=== PATIENT | male | born 1995 | race Caucasian/White ===

== ENCOUNTER 2017-12-09 00:08 | Emergency (ER) | payer SELFPAY | END 2017-12-09 04:32 | disposition left against medical advice (07) | LOC: ER 04:18 | DX: Z53.21 Procedure and treatment not carried out due to patient leaving prior to being seen by health care provider (principal) ==

== ENCOUNTER 2019-02-17 21:30 | Emergency (ER) | payer SELFPAY ==
[~2019-02-17] VITALS: Ht 175.3 cm; Wt 120.0 kg
[2019-02-17] MEDS ORDERED: KETOROLAC 60MG/2ML VIAL IM ONE (22:00)
[2019-02-17] MEDS ORDERED: ONDANSETRON 4MG ODT PO ONE (22:00)
[2019-02-18 00:04] VITALS: BP 128/90
== END 2019-02-18 00:06 | disposition home or self-care (01) ==
LOC: ER 21:30
DX: R10.9 Unspecified abdominal pain (principal)
CPT/HCPCS: 74021; 96372; 99283; J1885; Q0162; Z7610

== ENCOUNTER 2019-11-26 17:35 | Emergency (ER) | payer SELFPAY ==
[~2019-11-26] VITALS: Ht 172.7 cm; Wt 91.0 kg
[2019-11-26] MEDS ORDERED: IBUPROFEN 600MG TABLET PO ONE (18:00)
[2019-11-26 18:26] VITALS: BP 151/86
== END 2019-11-26 18:48 | disposition home or self-care (01) ==
LOC: ER 17:35
DX: K02.9 Dental caries, unspecified (principal); S02.5XXA Fracture of tooth (traumatic), initial encounter for closed fracture; X58.XXXA Exposure to other specified factors, initial encounter; Y93.9 Activity, unspecified; Y92.9 Unspecified place or not applicable
CPT/HCPCS: 99283